=== PATIENT | male | born 1995 | race Caucasian/White ===

== ENCOUNTER 2020-03-01 21:43 | Emergency (ER) | payer SELFPAY ==
[2020-03-01 22:08] LABS: Hematocrit 41.6 % (35.5-45.6); Hemoglobin 14.6 gm/dl (11.8-15.2); Mean Corpuscular HGB Conc 35 % (32-34); Mean Corpuscular Volume 89 fl (84-94); Platelet Count 274 K/mm3 (140-440); Red Blood Count 4.69 M/mm3 (3.65-5.03); Red Cell Distribution Width 13.3 % (13.2-15.2)
[2020-03-01 22:32] LABS: Alanine Aminotransferase 137 units/L (7-56); Albumin 4.5 g/dL (3.9-5); BUN/Creatinine Ratio 13; Blood Urea Nitrogen 8 mg/dL (9-20); Calcium 8.8 mg/dL (8.4-10.2); Hemolysis Index 14
--- NOTE | 2020-03-02 04:30 | XRay Report ---
CHEST 2 VIEWS INDICATION / CLINICAL INFORMATION: dizzy. COMPARISON: None available. FINDINGS: SUPPORT DEVICES: None. HEART / MEDIASTINUM: No significant abnormality. LUNGS / PLEURA: No significant pulmonary or pleural abnormality. No pneumothorax. ADDITIONAL FINDINGS: No significant additional findings. IMPRESSION: 1. No acute findings. Signer Name: Kenneth Glass MD Signed: 03/02/2020 4:25 AM Workstation Name: [id number]
[2020-03-02 05:01] VITALS: BP 125/79
--- NOTE | 2020-03-02 05:34 | Emergency Department Report ---
ED General Adult HPI - General Chief complaint: Dizziness Stated complaint: DIZZINESS,HEADACHE Time Seen by Provider: 03/02/20 05:19 Source: patient Mode of arrival: Ambulatory Limitations: No Limitations - History of Present Illness Initial comments: 24-year-old Micronesian presents to the emergency room stating that he has had a headache and dizziness x2 days with nausea but no vomiting. Patient states that he was feeling warm but no fever is been nauseated but no vomiting. He complains of body aches last took ibuprofen on . He reports he has had diarrhea but had his gallbladder out but he feels like his stools are not increasing in frequency. He reports he has a slight headache at this time. Denies any nausea at this time. Patient has had an appendectomy and cholecystectomy. Onset/Timin -: days(s) Severity scale (0 -10): 6 Quality: aching Consistency: constant Improves with: none Worsens with: none Associated Symptoms: headaches, nausea/vomiting (No vomiting) Treatments Prior to Arrival: none - Related Data Allergies Allergy/AdvReac Type Severity Reaction Status Date / Time No Known Allergies Allergy Unverified 03/01/20 21:51 ED Review of Systems ROS: Stated complaint: DIZZINESS,HEADACHE Other details as noted in HPI Comment: All other systems reviewed and negative ED Past Medical Hx - Past Medical History Previous Medical History?: No - Surgical History Past Surgical History?: Yes Hx Cholecystectomy: Yes Hx Appendectomy: Yes - Social History Smoking Status: Former Smoker Substance Use Type: None ED Physical Exam - General Limitations: No Limitations General appearance: alert, in no apparent distress - Head Head exam: Present: atraumatic, normocephalic - Eye Eye exam: Present: normal appearance - ENT ENT exam: Present: mucous membranes moist - Neck Neck exam: Present: normal inspection - Respiratory Respiratory exam: Present: normal lung sounds bilaterally. Absent: respiratory distress - Cardiovascular Cardiovascular Exam: Present: regular rate, normal rhythm. Absent: systolic murmur, diastolic murmur, rubs, gallop - GI/Abdominal GI/Abdominal exam: Present: soft, normal bowel sounds - Rectal Rectal exam: Present: deferred - Extremities Exam Extremities exam: Present: normal inspection - Back Exam Back exam: Present: normal inspection - Neurological Exam Neurological exam: Present: alert, oriented X3 - Psychiatric Psychiatric exam: Present: normal affect, normal mood - Skin Skin exam: Present: warm, dry, intact, normal color. Absent: rash ED Course Vital Signs 03/01/20 03/02/20 21:48 05:00 Temperature 99.3 F 99.4 F Pulse Rate 109 H 107 H Respiratory 20 18 Rate Blood Pressure 132/82 Blood Pressure 125/79 [Right] O2 Sat by Pulse 95 98 Oximetry ED Medical Decision Making - Lab Data Result diagrams: 03/01/20 22:00 03/01/20 22:00 Laboratory Tests 03/01/20 03/01/20 22:00 22:00 WBC 4.9 RBC 4.69 Hgb 14.6 Hct 41.6 MCV 89 MCH 31 MCHC 35 H RDW 13.3 Plt Count 274 Sodium 136 L Potassium 3.8 Chloride 100.8 Carbon Dioxide 20 L Anion Gap 19 BUN 8 L Creatinine 0.6 L Estimated GFR > 60 BUN/Creatinine Ratio 13 Glucose 115 H Calcium 8.8 Total Bilirubin 0.70 AST 113 H ALT 137 H Alkaline Phosphatase 57 Total Protein 8.3 H Albumin 4.5 Albumin/Globulin Ratio 1.2 - Radiology Data Radiology results: report reviewed Referring Physician:CONNIE MOREIRAPatient Name:ELSA BENITEZPatient ID:[id number] of :2047-09-51Kli:MaleAccession:[id number] Date:[id number] Status:Finalized Findings [address] [address] XRay Report Signed Patient: ELSA BENITEZ MR#: [id number] : 1995 Acct:[id number] Age/Sex: 24 / M ADM Date: 03/01/20 Loc: ED Attending Dr: Ordering Physician: MALINA PEREZ Date of Service: 03/02/20 Procedure(s): XR chest routine 2V Accession Number(s): [id number] cc: MALINA PEREZ Fluoro Time In Minutes: CHEST 2 VIEWS INDICATION / CLINICAL INFORMATION: dizzy. COMPARISON: None available. FINDINGS: SUPPORT DEVICES: None. HEART / MEDIASTINUM: No significant abnormality. LUNGS / PLEURA: No significant pulmonary or pleural abnormality. No pneumothorax. ADDITIONAL FINDINGS: No significant additional findings. IMPRESSION: 1. No acute findings. Signer Name: Kenneth Glass MD Signed: 03/02/2020 4:25 AM Workstation Name: [id number] Transcribed By: BC Dictated By: Kenneth Glass MD Electronically Authenticated By: Kenneth Glass MD Signed Date/Time: 03/02/20424 DD/ 4 TD/TT: - Medical Decision Making 24-year-old Micronesian presents to the emergency room stating that he has had a headache and dizziness x2 days with nausea but no vomiting. Patient states that he was feeling warm but no fever is been nauseated but no vomiting. He complains of body aches last took ibuprofen on . He reports he has had diarrhea but had his gallbladder out but he feels like his stools are not increasing in frequency. He reports he has a slight headache at this time. Denies any nausea at this time. Patient has had an appendectomy and cholecystectomy. Patient was discharged with instructions to take [id number] ibuprofen or T ylenol for pain management and Imodium for diarrhea Critical care attestation.: If time is entered above; I have spent that time in minutes in the direct care of this critically ill patient, excluding procedure time. ED Disposition Clinical Impression: Viral syndrome Disposition: DC-01 TO HOME OR SELFCARE Is pt being admited?: No Does the pt Need Aspirin: No Condition: Stable Instructions: Viral Syndrome (ED) Additional Instructions: Take Tylenol or ibuprofen for body aches. Try using Imodium AD for diarrhea. Increase in fluid intake follow-up with your primary care provider. Referrals: YESICA BOONE MD [Primary Care Provider] - 3-5 Days
== END 2020-03-02 06:26 | disposition home or self-care (01) ==
LOC: ED 21:43
DX: B34.9 Viral infection, unspecified (principal); Z90.49 Acquired absence of other specified parts of digestive tract; Z87.891 Personal history of nicotine dependence
CPT/HCPCS: 36415; 71046; 80053; 85027

== ENCOUNTER 2021-07-07 10:00 | Emergency (ER) | payer SELFPAY ==
[2021-07-07 10:07] VITALS: BP 147/91
[2021-07-07] MEDS ORDERED: ONDANSETRON 4 MG/2 ML INJ IV ONE (10:14)
[2021-07-07] MEDS ORDERED: SODIUM CHLORIDE 0.9% 1000 ML 1,000 ML IV ONE (10:14)
[2021-07-07] MEDS ORDERED: HYOSCYAMINE SUBL 0.125 MG TAB SL ONE (10:14)
--- NOTE | 2021-07-07 10:42 | Emergency Department Report ---
ED Abdominal Pain HPI - General Chief Complaint: Abdominal Pain Stated Complaint: abdominal pain Time Seen by Provider: 07/07/21 10:09 Source: patient Mode of arrival: Ambulatory Limitations: No Limitations - History of Present Illness Initial Comments: Patient is a 25-year-old male presents emergency room with complaints of generalized abdominal pain that began 2 days ago. He has associated diarrhea. Patient states that his family members are sick at home with vomiting and diarrhea. Patient states that last night he took Pepto-Bismol and this morning when he had diarrhea he reports that his stool is dark. He was not previously having dark stool prior to taking the Pepto-Bismol. He denies any fever, hematemesis, hematochezia, urinary symptoms. No past medical history. No allergies medications. - Related Data Previous Rx's Medication Instructions Recorded Last Taken Type Azithromycin [Zithromax TAB] 250 mg PO QDAY 5 Days #6 tablet 03/09/20 Unknown Rx Hyoscyamine Subl [Levsin Sl 0.125 0.125 mg SL Q6HR PRN #10 tab 03/09/20 Unknown Rx TAB] Promethazine [Phenergan] 25 mg PO Q8HR PRN #10 tab 03/09/20 Unknown Rx Hyoscyamine Subl [Levsin Sl 0.125 0.125 mg SL Q6HR PRN #10 tab 07/07/21 Unknown Rx TAB] Ondansetron [Zofran Odt] 4 mg PO Q8HR PRN #10 tab.rapdis 07/07/21 Unknown Rx Allergies Allergy/AdvReac Type Severity Reaction Status Date / Time No Known Allergies Allergy Verified 07/07/21 10:07 ED Review of Systems ROS: Stated complaint: abdominal pain Other details as noted in HPI Comment: All other systems reviewed and negative ED Past Medical Hx - Surgical History Hx Cholecystectomy: Yes Hx Appendectomy: Yes - Social History Smoking Status: Never Smoker Substance Use Type: None - Medications Home Medications: Home Medications Medication Instructions Recorded Confirmed Last Taken Type Azithromycin [Zithromax TAB] 250 mg PO QDAY 5 Days #6 tablet 03/09/20 Unknown Rx Hyoscyamine Subl [Levsin Sl 0.125 0.125 mg SL Q6HR PRN #10 tab 03/09/20 Unknown Rx TAB] Promethazine [Phenergan] 25 mg PO Q8HR PRN #10 tab 03/09/20 Unknown Rx Hyoscyamine Subl [Levsin Sl 0.125 0.125 mg SL Q6HR PRN #10 tab 07/07/21 Unknown Rx TAB] Ondansetron [Zofran Odt] 4 mg PO Q8HR PRN #10 tab.rapdis 07/07/21 Unknown Rx ED Physical Exam - General Limitations: No Limitations General appearance: alert, in no apparent distress - Head Head exam: Present: atraumatic, normocephalic - Eye Eye exam: Present: normal appearance - ENT ENT exam: Present: mucous membranes moist - Respiratory Respiratory exam: Present: normal lung sounds bilaterally. Absent: respiratory distress, wheezes, rales, rhonchi, stridor, chest wall tenderness, accessory muscle use, decreased breath sounds, prolonged expiratory - Cardiovascular Cardiovascular Exam: Present: regular rate, normal rhythm, normal heart sounds. Absent: systolic murmur, diastolic murmur, rubs, gallop - GI/Abdominal GI/Abdominal exam: Present: soft, normal bowel sounds. Absent: distended, tenderness, guarding, rebound, rigid - Neurological Exam Neurological exam: Present: alert, oriented X3 - Psychiatric Psychiatric exam: Present: normal affect, normal mood - Skin Skin exam: Present: warm, dry, intact ED Course Vital Signs 07/07/21 07/07/21 10:06 13:23 Temperature 98.7 F Pulse Rate 106 H 94 H Respiratory 16 Rate Blood Pressure 147/91 [Right] O2 Sat by Pulse 97 97 Oximetry ED Medical Decision Making - Lab Data Result diagrams: 07/07/21 10:35 07/07/21 10:35 Lab Results 07/07/21 07/07/21 07/07/21 Range/Units 10:35 10:35 11:52 WBC 7.3 (4.5-11.0) K/mm3 RBC 4.88 (3.65-5.03) M/mm3 Hgb 14.8 (11.8-15.2) gm/dl Hct 43.3 (35.5-45.6) % MCV 89 (84-94) fl MCH 30 (28-32) pg MCHC 34 (32-34) % RDW 13.2 (13.2-15.2) % Plt Count 357 (140-440) K/mm3 Lymph % (Auto) 19.0 (13.4-35.0) % [place] % (Auto) 7.0 (0.0-7.3) % Eos % (Auto) 1.3 (0.0-4.3) % Baso % (Auto) 0.4 (0.0-1.8) % Lymph # (Auto) 1.4 (1.2-5.4) K/mm3 [place] # (Auto) 0.5 (0.0-0.8) K/mm3 Eos # (Auto) 0.1 (0.0-0.4) K/mm3 Baso # (Auto) 0.0 (0.0-0.1) K/mm3 Seg Neutrophils % 72.3 H (40.0-70.0) % Seg Neutrophils # 5.3 (1.8-7.7) K/mm3 Sodium 136 L (137-145) mmol/L Potassium 3.7 (3.6-5.0) mmol/L Chloride 99.4 (98-107) mmol/L Carbon Dioxide 21 L (22-30) mmol/L Anion Gap 19 mmol/L BUN 6 L (9-20) mg/dL Creatinine 0.4 L (0.8-1.3) mg/dL Estimated GFR > 60 ml/min BUN/Creatinine Ratio 15 % Glucose 111 H (75-100) mg/dL Calcium 8.8 (8.4-10.2) mg/dL Total Bilirubin 0.80 (0.1-1.2) mg/dL AST 30 (5-40) units/L ALT 72 H (7-56) units/L Alkaline Phosphatase 68 (35-129) units/L Total Protein 8.5 H (6.3-8.2) g/dL Albumin 4.6 (3.9-5) g/dL Albumin/Globulin Ratio 1.2 % Lipase 18 (13-60) units/L Urine Color Yellow (Yellow) Urine Turbidity Clear (Clear) Urine pH 6.0 (5.0-7.0) Ur Specific [place] 1.014 (1.003-1.030) Urine Protein 30 mg/dl (Negative) mg/dL Urine Glucose (UA) Neg (Negative) mg/dL Urine Ketones Neg (Negative) mg/dL Urine Blood Neg (Negative) Urine Nitrite Neg (Negative) Urine Bilirubin Neg (Negative) Urine Urobilinogen < 2.0 (<2.0) mg/dL Ur Leukocyte Esterase Neg (Negative) Urine WBC (Auto) 2.0 (0.0-6.0) /HPF Urine RBC (Auto) 4.0 (0.0-6.0) /HPF U Epithel Cells (Auto) 2.0 (0-13.0) /HPF Urine Mucus 2+ /HPF Vital Signs 07/07/21 07/07/21 10:06 13:23 Temperature 98.7 F Pulse Rate 106 H 94 H Respiratory 16 Rate Blood Pressure 147/91 [Right] O2 Sat by Pulse 97 97 Oximetry - Medical Decision Making Patient is a 25-year-old male presents emergency room with complaints of generalized abdominal pain that began 2 days ago. He has associated diarrhea. Patient states that his family members are sick at home with vomiting and diarrhea. Patient states that last night he took Pepto-Bismol and this morning when he had diarrhea he reports that his stool is dark. He was not previously having dark stool prior to taking the Pepto-Bismol. He denies any fever, hematemesis, hematochezia, urinary symptoms. No past medical history. No allergies medications. Initial vitals with elevated heart rate which improved upon repeat. No abdominal tenderness on exam, no guarding, no rebound, no rigidity, no peritoneal signs. Labs with mild elevation of ALT at 72, otherwise stable. Patient given 1 L normal saline, Zofran, Levsin. Patient is able to tolerate p.o. intake. Patient had no further episodes of diarrhea while in the emergency department his abdominal pain has improved. Patient has no tenderness on exam, no leukocytosis, H&H is normal. I believe patient's dark stool was likely related to Pepto-Bismol. Discussed the importance of outpatient follow- up. Discussed return precautions. Advised patient please take medication as prescribed. Increase your fluid intake. Eat a bland liquid diet and slowly advance your diet as tolerated. Follow-up with your primary care doctor. Follow-up with a GI doctor. Return to emergency room immediately for any new or worsening symptoms. Critical care attestation.: If time is entered above; I have spent that time in minutes in the direct care of this critically ill patient, excluding procedure time. ED Disposition Clinical Impression: Elevated alanine aminotransferase (ALT) level Abdominal pain Qualifiers: Abdominal location: generalized Qualified Code(s): R10.84 - Generalized abdominal pain Diarrhea Qualifiers: Diarrhea type: unspecified type Qualified Code(s): R19.7 - Diarrhea, unspecified Disposition: 01 HOME / SELF CARE / HOMELESS Is pt being admited?: No Does the pt Need Aspirin: No Condition: Stable Instructions: Diarrhea, Adult, Abdominal Pain, Adult, [id number] Additional Instructions: please take medication as prescribed. Increase your fluid intake. Eat a bland liquid diet and slowly advance your diet as tolerated. Follow-up with your primary care doctor. Follow-up with a GI doctor. Return to emergency room immediately for any new or worsening symptoms. Prescriptions: Hyoscyamine Subl [Levsin Sl 0.125 TAB] 0.125 mg SL Q6HR PRN #10 tab PRN Reason: abd cramping/diarrhea Ondansetron [Zofran Odt] 4 mg PO Q8HR PRN #10 tab.rapdis PRN Reason: vomiting Referrals: TREMAYNE ZAPATA MD [Staff Physician] - 2-3 Days [facility] [Provider Group] - 2-3 Days [facility] [Provider Group] - 2-3 Days Forms: Work/School Release Form(ED) Time of Disposition: 12:24 Print Language: SWAZI
[2021-07-07 10:51] LABS: Basophils % (Auto) 0.4 % (0.0-1.8); Eosinophils # (Auto) 0.1 K/mm3 (0.0-0.4); Eosinophils % (Auto) 1.3 % (0.0-4.3); Hematocrit 43.3 % (35.5-45.6); Hemoglobin 14.8 gm/dl (11.8-15.2); Lymphocytes # (Auto) 1.4 K/mm3 (1.2-5.4); Mean Corpuscular HGB Conc 34 % (32-34); Mean Corpuscular Volume 89 fl (84-94); Monocytes # (Auto) 0.5 K/mm3 (0.0-0.8); Platelet Count 357 K/mm3 (140-440); Red Blood Count 4.88 M/mm3 (3.65-5.03); Red Cell Distribution Width 13.2 % (13.2-15.2)
[2021-07-07 11:10] LABS: Alanine Aminotransferase 72 units/L (7-56); Albumin 4.6 g/dL (3.9-5); Blood Urea Nitrogen 6 mg/dL (9-20); Calcium 8.8 mg/dL (8.4-10.2); Hemolysis Index 6
[2021-07-07 11:12] LABS: BUN/Creatinine Ratio 15
[2021-07-07 12:19] LABS: Bilirubin,Urine NEG (Negative); Blood,Urine NEG (Negative); Color,Urine Yellow (Yellow); Mucus,Urine 2+ /HPF; Urobilinogen,Urine < 2.0 mg/dL (<2.0)
== END 2021-07-07 13:24 | disposition home or self-care (01) ==
LOC: ED 10:00
DX: R10.84 Generalized abdominal pain (principal); R19.7 Diarrhea, unspecified; R74.8 Abnormal levels of other serum enzymes
CPT/HCPCS: 36415; 80053; 81001; 83690; 85025; 96361; 96374; 99283; J2405; J7030; Q0162